=== PATIENT | female | born 1945 | race African-American/Black ===

== ENCOUNTER → 2019-10-01 | Outpatient (CLI) | payer OTHER ==
[~2019-10-01] MED LIST: REGADENOSON 0.4 MG/5 ML SYR IV ONE
--- NOTE | 2019-10-05 15:25 | Operative Report ---
DATE OF PROCEDURE: 10/01/2019 SURGEON: Nikolay Womack MD This is an exercise Lexiscan nuclear stress test. INDICATION: Chest pain. PROCEDURE: The patient was stressed using a 1 minute intravenous infusion of Lexiscan. Resting and stress Myoview imaging was obtained. Resting electrocardiogram shows sinus rhythm with right bundle branch block. Resting heart rate 57 beats and resting blood pressure 163/78. Both EKG at resting and stress were normal. No arrhythmias. Rest images are normal. Stress images show mild decrease in tracer uptake in the LV apex. Normal contractility of the left ventricle. CONCLUSIONS: 1. Abnormal Lexiscan nuclear stress test showing small area of mild ischemia in the left ventricular apex. 2. LV ejection fraction is 74%. Nikolay Womack MD KSB/MODL /[id number]
== END ==
LOC: NM 08:28
PROVIDERS: ATTEND Internal Medicine Interventional Cardiology
DX: I25.708 Atherosclerosis of coronary artery bypass graft(s), unspecified, with other forms of angina pectoris (principal)
CPT/HCPCS: 78452; 93017; A9502; J2785

== ENCOUNTER → 2019-10-26 | Day surgery (SDC) | payer OTHER ==
[2019-10-22 10:18] LABS: BASOPHILS % 0.5 % (0.0-1.0); EOSINOPHILS # (AUTO) 0.1 (0.0-0.4); EOSINOPHILS % 3.1 % (0.0-6.0); HEMATOCRIT 37.1 % (34.2-44.1); HEMOGLOBIN 11.8 g/dL (12.0-16.0); LYMPHOCYTES # (AUTO) 1.3 (1.0-3.2); LYMPHOCYTES % 32.1 % (18.0-39.1); MEAN CORPUSCULAR HEMOGLOBIN 30.3 pg (28-32); MEAN CORPUSCULAR HGB CONC 31.8 g/dL (31-35); MEAN CORPUSCULAR VOLUME 95.4 fL (81-99); MONOCYTES # (AUTO) 0.5 (0.2-0.8); MONOCYTES % 10.8 % (4.4-11.3); NEUTROPHILS # (AUTO) 2.2 (2.1-6.9); PLATELET COUNT 155 x10e3/uL (140-360); RED BLOOD COUNT 3.89 x10e6/uL (3.6-5.1); RED CELL DISTRIBUTION WIDTH 13.8 % (11.7-14.4)
[2019-10-22 10:48] LABS: ALANINE AMINOTRANSFERASE 8 IU/L (0-55); ALBUMIN 3.6 g/dL (3.5-5.0); ALKALINE PHOSPHATASE 68 IU/L (40-150); ANION GAP 16.1 mmol/L (8-16); BLOOD UREA NITROGEN 15 mg/dL (7-26); BUN/CREATININE RATIO 18 (6-25); CALCIUM 9.3 mg/dL (8.4-10.2); CARBON DIOXIDE 23 mmol/L (22-29); CHLORIDE 106 mmol/L (98-107); CREATININE, SERUM 0.84 mg/dL (0.57-1.11); EST GLOMERULAR FILTRATION RATE > 60 ML/MIN (60-); GLUCOSE 85 mg/dL (74-118); POTASSIUM 4.1 mmol/L (3.5-5.1); SODIUM 141 mmol/L (136-145)
[~2019-10-26] VITALS: Ht 167.6 cm; Wt 62.1 kg
[2019-10-26] VITALS (9 sets, daily range): BP systolic 118–175; BP diastolic 61–80
[~2019-10-26] MED LIST changes: +ALLOPURINOL100 MG PO; +ALPRAZOLAM 0.5 MG TAB ONE; +ASPIR 8181 MG PO; +ATORVASTATIN CA20 MG PO; +ATROPINE SULFATE 0.1 MG/ML 10ML SYR ONE; +CLOPIDOGREL75 MG PO; +DIPHENHYDRAMINE HCL 25 MG CAP ONE; +FENTANYL CITRATE/PF 100MCG/2 ML INJ ONE; +FISH OIL 1,0001 EAC2 PO; +HEPARIN SOD (PORCINE) 1000 UNIT/ML 30ML ONE; +HEPARIN SOD/SOD CHLORIDE 2,000 ML ONE; +HYDROXYCHLOROQ200 MG PO; +IOPAMIDOL 300MG/ML 100 ML INFUS..BTL IV ONE; +IOPAMIDOL 370 MG/ML 200 ML INFUS..BTL INJ ONE; +ISOSORBIDE MONO30 MG PO; +LASIX20 MG PO; +LIDOCAINE HCL 2% LOCAL 20 ML VIAL ONE; +METOPROLOL SUCC50 MG PO; +MIDAZOLAM HCL 2 MG/2 ML VIAL ONE; +POTASSIUM CHLO10 ME1 PO; +PROTAMINE SULFATE 10 MG/ML 5 ML VIAL ONE; -REGADENOSON 0.4 MG/5 ML SYR IV ONE; +SODIUM CHLORIDE 0.9% 1000ML 1,000 ML ONE; +SODIUM CHLORIDE 0.9% 50ML 50 ML ONE; +VALSARTAN-HCTZ1 EAC4 PO; +VERAPAMIL HCL 2.5 MG/ML 2 ML VIAL ONE; +VITAMIN D3 PO
--- NOTE | 2019-10-26 14:00 | NUR ---
1400 bedside report received from LUZ Wilkerson.Identiferx2. received rm #[id number].Alert oriented and appropriate, PERRLA, respirations even and unlabored to room air. Pulses x4 extremities equal and strong. Pedal pulses PT/DP X4 Doppler only Remove in 20min not necessary for ACT pt was reversed with Protamine per MD.. Cap fill brisk < 3 sec. Pull 20min is 1425pm. Don Technologist to do pull. Skin warm and dry integrity appears D/I. IV 20g to left hand 100cchr, presents healthy w/o s/s of infiltration or complaint. Abdomen soft and supple. pt offered toileting, denies need to urinate or defecate. No personal affects with patient. Family daughter in waiting Mary Alice. Currently w/o complaint of pain or need. -dany/luz
--- NOTE | 2019-10-26 14:25 | NUR ---
1425 stasis completed at 1455pm D stat in place No gross issues pain,pallor pressure or dysrhythmia. (Sinus Rhythm ) Tolerating po intake. Pt family to pickup pt at 1900pm Denies other c/o DC planning completed with daughter and paper given to family. ds/rn
--- NOTE | 2019-10-26 14:25 | NUR ---
1425p No gross issues pain pallor pressure or dysthymia. Technologist at bedside 30min manual hold with stasis at 1455 No gross issues pain pallor pt in sinus saul dry stat applied PPx4 Doppler ds/rn
--- NOTE | 2019-10-26 19:00 | NUR ---
1900 Addendum: 10/26/19 at 1912 by Maral Salazar RN 1900pPt meets DC criteria. Rt Groin assessed for s/s of complication and presence of hematoma. Skin warm, dry, no discolor, and pulses present. IV removed from left wrist Distal tip appears intact. VS WNL. Pt denies pain, sob, or need at this time. Family at here at [facility]. Review of discharge paperwork and follow up instructions. verbalized understanding. Pt to wheelchair and transported to front of hospital. Transferred to private vehicle under own strength w/o incident with DC with hand. - dany/rn
--- NOTE | 2019-10-26 20:41 | Operative Report ---
DATE OF PROCEDURE: 10/26/2019 SURGEON: Nikolay Womack MD INDICATIONS: 1. Coronary artery disease, abnormal stress test. 2. Peripheral arterial disease with claudication. PROCEDURES PERFORMED: 1. Conscious sedation administration of hemodynamic neurological monitoring in recovery back cathode builder RN, supervision by MD, 65 minutes. 2. Ultrasound-guided access in the right femoral artery. 3. Left heart catheterization, selective coronary angiography. 4. Selective cannulation of one arterial and two venous bypass conduits. 5. Abdominal aortogram. 6. Bilateral lower extremity angiograms. 7. Third order catheter placement from the right femoral artery and left superficial femoral artery. 8. Atherectomy and drug-coated balloon angioplasty of the left superficial femoral artery. 9. Secondary thrombectomy of the left femoral artery. 10. Manual removal of the sheath from the right groin. COMPLICATIONS: None. RECOMMENDATIONS: Dual antiplatelet therapy for life, staged intervention on the right popliteal artery via femoral-popliteal access in antegrade fashion of the right groin. BLOOD LOSS: Minimal. DESCRIPTION OF PROCEDURE: Access was obtained in the right femoral artery using ultrasound guidance. A 6-Arabic sheath was placed. Coronary angiography demonstrated completely occluded left main coronary artery. Right coronary artery was completely occluded. Left internal mammary artery bypass to left anterior descending artery was widely patent. Saphenous vein bypass to obtuse marginal artery is 1 and 2 were widely patent. Saphenous vein bypass to the right posterior descending artery was widely patent. No intervention necessary in the coronary circulation. ABDOMINAL INTERVENTION: Abdominal aortogram showed heavily calcified abdominal aorta and iliacs with bilateral 50% common iliac artery stenosis. Right external iliac stent was patent. The left femoral artery was not well visualized. The catheter was advanced in the right femoral artery, left superficial femoral artery (3rd order catheter placement with the 90% heavily calcified stenosis of the proximal left femoral artery as well as 70% in-stent restenosis of the femoral artery stent). Complete occlusion of the left anterior tibial artery with 2-vessel runoff to the left foot. Right leg angiogram demonstrated completely occluded and right femoral artery with a patent fem popliteal bypass distant to the bypass, 99% popliteal artery in-stent restenosis with stents extending from the anterior and posterior tibial arteries into the popliteal artery. A decision was made to intervene on the left femoral artery. The patient received 6000 units of intravenous heparin, oral aspirin and prasugrel for anticoagulation. The sheath was exchanged to a 6-Arabic 45 cm sheath advanced from the right femoral artery to the left superficial femoral artery. The lesions were crossed using a Glidewire. The wire was exchanged to a ViperWire. Orbital atherectomy using a 1.5 mm CSI device was performed. Large amounts of visible thrombus for which manual aspiration thrombectomy were needed. A single 6 x 250 mm Medtronic Impact balloon was used to dilate with excellent end result, less than 20% residual stenosis in the left leg, 2-vessel runoff, no complications. Right sheath was removed under manual pressure, the patient was discharged home same day. MD BRANDON Banda/TATIANA /[id number]
== END | disposition home or self-care (01) ==
LOC: CATH LAB 10:35
PROVIDERS: ATTEND Internal Medicine Interventional Cardiology
DX: I25.708 Atherosclerosis of coronary artery bypass graft(s), unspecified, with other forms of angina pectoris (principal); I70.212 Atherosclerosis of native arteries of extremities with intermittent claudication, left leg; R94.39 Abnormal result of other cardiovascular function study; I10 Essential (primary) hypertension; J45.909 Unspecified asthma, uncomplicated; I25.2 Old myocardial infarction; E78.00 Pure hypercholesterolemia, unspecified; Z01.812 Encounter for preprocedural laboratory examination; Z11.59 Encounter for screening for other viral diseases; Z79.02 Long term (current) use of antithrombotics/antiplatelets; Z79.82 Long term (current) use of aspirin; Z95.1 Presence of aortocoronary bypass graft; Z82.49 Family history of ischemic heart disease and other diseases of the circulatory system
CPT/HCPCS: 36415; 37186; 37225; 75625; 80053; 85025; 87635; 93455; C1724; C1769 ×3; C1887; J1644; J2001; J2250; J2720; J3010; J7030; Q9967 ×2; 36247; 75716; 93454; 99152; 99153

== ENCOUNTER → 2019-12-21 | Day surgery (SDC) | payer OTHER ==
[2019-12-16 11:28] LABS: BASOPHILS % 0.5 % (0.0-1.0); EOSINOPHILS # (AUTO) 0.1 (0.0-0.4); HEMATOCRIT 35.9 % (34.2-44.1); HEMOGLOBIN 11.2 g/dL (12.0-16.0); LYMPHOCYTES # (AUTO) 1.5 (1.0-3.2); LYMPHOCYTES % 33.6 % (18.0-39.1); MEAN CORPUSCULAR HGB CONC 31.2 g/dL (31-35); MEAN CORPUSCULAR VOLUME 96.2 fL (81-99); MONOCYTES # (AUTO) 0.6 (0.2-0.8); MONOCYTES % 13.4 % (4.4-11.3); NEUTROPHILS # (AUTO) 2.1 (2.1-6.9); NEUTROPHILS % 49.3 % (38.7-80.0); PLATELET COUNT 166 x10e3/uL (140-360); RED BLOOD COUNT 3.73 x10e6/uL (3.6-5.1); RED CELL DISTRIBUTION WIDTH 14.2 % (11.7-14.4)
[2019-12-16 11:45] LABS: ALANINE AMINOTRANSFERASE 9 IU/L (0-55); ALBUMIN 3.5 g/dL (3.5-5.0); ALBUMIN/GLOBULIN RATIO 0.9 (0.8-2.0); ALKALINE PHOSPHATASE 65 IU/L (40-150); ANION GAP 12.5 mmol/L (8-16); BLOOD UREA NITROGEN 15 mg/dL (7-26); BUN/CREATININE RATIO 18 (6-25); CARBON DIOXIDE 27 mmol/L (22-29); CHLORIDE 106 mmol/L (98-107); CREATININE, SERUM 0.83 mg/dL (0.57-1.11); EST GLOMERULAR FILTRATION RATE > 60 ML/MIN (60-); GLUCOSE 87 mg/dL (74-118); POTASSIUM 4.5 mmol/L (3.5-5.1); SODIUM 141 mmol/L (136-145)
[~2019-12-21] VITALS: Ht 167.6 cm; Wt 60.8 kg
[2019-12-21] VITALS (14 sets, daily range): BP systolic 101–160; BP diastolic 54–80
[~2019-12-21] MED LIST changes: -ATROPINE SULFATE 0.1 MG/ML 10ML SYR ONE; +CEFAZOLIN SOD 1 GM VIAL ONE; +FAMOTIDINE20 MG PO; -HEPARIN SOD (PORCINE) 1000 UNIT/ML 30ML ONE; -IOPAMIDOL 370 MG/ML 200 ML INFUS..BTL INJ ONE; -VERAPAMIL HCL 2.5 MG/ML 2 ML VIAL ONE
--- NOTE | 2019-12-21 15:18 | NUR ---
1518pm RECEIVING NOTE HEEL BOOM OPERATOR RECOVERY DEPT............................................................... Bedside report received from Khadar CARL. Identifierx2. Alert oriented and appropriate, PERRLA, respirations even and unlabored to room air. Pulses x4 extremities equal and strong. Pedal pulses PT/DP X4 and marked. Cap fill brisk < 3 sec. rt sheath intact. NO gross issues pain pallor pressure or dysrhythmia. ACT 138 notified staff ready for pull Omega gearcase assembler and Khadar CARL for pull. Stasis is achieved at 1555pm. Tegaderm dressing applied PPx4 remains intact. Skin warm and dry integrity appears D/I IV 20g toleft hand at 100cchr, presents healthy w/o s/s of infiltration or complaint. Abdomen soft and supple. pt offered toileting, denies need to urinate or defecate. No personal affects with patient. Family XXXXX. Pt and family verbalizes understanding of POC. for dc home at 830pm per Dr Vu villagomez. Currently w/o complaint of pain or need. ds/rn
--- NOTE | 2019-12-21 15:40 | NUR ---
1540 Sheath pull at bedside.With [employer] manufacturing engineering technologist and Khadar RN stasis achieved at 15min fo r 1555 ok to dc home per Dr Womack orders via Eric RN at 830pm ds/rn
--- NOTE | 2019-12-21 15:55 | Operative Report ---
DATE OF PROCEDURE: 12/21/2019 SURGEON: Nikolay Womack MD INDICATIONS: Peripheral arterial disease, claudication. PROCEDURES PERFORMED: 1. Ultrasound-guided access in the right femoral artery and sheath placement. 2. Conscious sedation, 65 minutes. 3. Unilateral extremity angiogram with third-order catheter placement in the right femoral artery to the right dorsalis pedis artery. 4. Angioplasty of the right popliteal as well as anterior and posterior tibial arteries. COMPLICATIONS: None. BLOOD LOSS: Minimal. RECOMMENDATIONS: Dual antiplatelet therapy. DESCRIPTION OF PROCEDURE: Access obtained in the right femoral artery using ultrasound guidance. A 6-Kyrgyz sheath was placed in antegrade fashion. The patient received heparin for anticoagulation, 90% stenosis of the distal popliteal anterior tibioperoneal trunk wire was advanced across the lesion. Balloon angioplasty with drug-coated balloon 4 mm in the popliteal artery extending in the posterior tibial artery with regular 3 mm balloon in the right anterior tibial artery. Excellent end result, less than 10% residual stenosis. No complications. Sheath was removed under manual pressure. The patient discharged home same day. Nikolay Womack MD KSB/MODL /[id number]
--- NOTE | 2019-12-21 20:06 | NUR ---
2000p sitting up to dress. awaiting arrival of family for transport home No gross issues pain,pallor pressure or dysrhythmia. ds/rn
--- NOTE | 2019-12-21 20:30 | NUR ---
2030pm DATA COMMUNICATIONS ENGINEER RECOVERY DISCHARGE NURSING NOTE Pt meets DC criteria. Rt Groin access assessed for s/s of complication and presence of hematoma. Skin warm, dry, no discolor, and pulses present. IV removed from left hand. Distal tip appears intact. VS WNL. Pt denies pain, sob, or need at this time. Family arrive at [facility],teaching completed with review follow up instructions and precautions,verbalized understanding son and patient.. Pt to wheelchair and transported to front of hospital. Transferred to private vehicle under own strength w/o incident with DC paperwork in hand. ds/rn
== END | disposition home or self-care (01) ==
LOC: CATH LAB 11:51
PROVIDERS: ATTEND Internal Medicine Interventional Cardiology
DX: I70.211 Atherosclerosis of native arteries of extremities with intermittent claudication, right leg (principal); I25.708 Atherosclerosis of coronary artery bypass graft(s), unspecified, with other forms of angina pectoris; I10 Essential (primary) hypertension; I25.2 Old myocardial infarction; E78.00 Pure hypercholesterolemia, unspecified; J45.909 Unspecified asthma, uncomplicated; Z01.812 Encounter for preprocedural laboratory examination; Z11.59 Encounter for screening for other viral diseases; Z79.02 Long term (current) use of antithrombotics/antiplatelets; Z79.82 Long term (current) use of aspirin
CPT/HCPCS: 36415; 37224; 37228; 75710; 76937; 80053; 85025; C1725; C1769; C1887; C2623; J0690; J2001; J2250; J2720; J3010; J7030; Q9967; U0002; 36247; 37232; 99152; 99153

== ENCOUNTER → 2020-08-31 | Outpatient (CLI) | payer OTHER ==
[~2020-08-31] MED LIST changes: -ALPRAZOLAM 0.5 MG TAB ONE; -CEFAZOLIN SOD 1 GM VIAL ONE; -DIPHENHYDRAMINE HCL 25 MG CAP ONE; -FENTANYL CITRATE/PF 100MCG/2 ML INJ ONE; -HEPARIN SOD/SOD CHLORIDE 2,000 ML ONE; -IOPAMIDOL 300MG/ML 100 ML INFUS..BTL IV ONE; -LIDOCAINE HCL 2% LOCAL 20 ML VIAL ONE; -MIDAZOLAM HCL 2 MG/2 ML VIAL ONE; -PROTAMINE SULFATE 10 MG/ML 5 ML VIAL ONE; +REGADENOSON 0.4 MG/5 ML SYR IV ONE; -SODIUM CHLORIDE 0.9% 1000ML 1,000 ML ONE; -SODIUM CHLORIDE 0.9% 50ML 50 ML ONE
== END ==
LOC: NM 07:59
PROVIDERS: ATTEND Internal Medicine Interventional Cardiology
DX: I50.9 Heart failure, unspecified (principal)
CPT/HCPCS: 78452; 93017; A9502; J2785